=== PATIENT | female | born 1945 | race Caucasian/White ===

== ENCOUNTER → 2018-02-14 | Outpatient (CLI) | payer MEDICARE ==
[~2018-02-14] MED LIST: ALLO300T2 PO; ASPI-183 PO; CALC1TAB87 PO; CENTCHW3 PO; CYCL10TA PO; ESTR42.5V VAGINAL; INDA2.5T PO; LISI-515 PO; LOVA20TA PO; POTA595T PO; VITA1000 PO
[2018-02-14 12:44] LABS: AUTOMATED NEUTROPHIL # 4.5 TH/MM3 (1.8-7.7); BASOPHIL # 0.1 TH/MM3 (0-0.2); BASOPHIL % 1.1 % (0.0-2.0); EOSINOPHIL # 0.3 TH/MM3 (0-0.4); EOSINOPHIL % 3.2 % (0.0-4.0); HEMATOCRIT 38.4 % (35.0-46.0); HEMOGLOBIN 12.8 GM/DL (11.6-15.3); LYMPHOCYTE # 2.5 TH/MM3 (1.0-4.8); MEAN CELL VOLUME 89.1 FL (80.0-100.0); MEAN CORPUSCULAR HEMOGLOBIN 29.6 PG (27.0-34.0); MEAN CORPUSCULAR HGB CONC 33.2 % (32.0-36.0); MEAN PLATELET VOLUME 10.4 FL (7.0-11.0); MONO % 6.7 % (0.0-8.0); MONOCYTE # 0.5 TH/MM3 (0-0.9); PLATELET COUNT 240 TH/MM3 (150-450); RED BLOOD COUNT 4.31 MIL/MM3 (4.00-5.30); RED CELL DISTRIBUTION WIDTH 15.1 % (11.6-17.2); WHITE BLOOD COUNT 7.9 TH/MM3 (4.0-11.0)
[2018-02-14 12:44] LABS: BILIRUBIN, URINE NEG (NEG); BLOOD, URINE NEG (NEG); GLUCOSE,URINE NEG (NEG); HYALINE CAST, URINE 3 /lpf (RARE); KETONE, URINE NEG (NEG); MUCUS URINE FEW /lpf (OCC); NITRITE,URINE NEG (NEG); PH, URINE 5.5 (5.0-8.5); SQUAMOUS EPITHELIAL CELL URINE 1 /hpf (0-5); TRANSITIONAL EPI CELLS, URINE <1 /hpf; URINE COLOR YELLOW (YELLW/STRAW); URINE LEUKOCYTE ESTERASE TRACE (NEG)
[2018-02-14 13:05] LABS: ALBUMIN 4.2 GM/DL (3.4-5.0); AST (GOT) 22 U/L (15-37); BICARBONATE 26.6 MEQ/L (21.0-32.0); BLOOD UREA NITROGEN 33 MG/DL (7-18); CALCIUM 9.7 MG/DL (8.5-10.1); CHLORIDE 108 MEQ/L (98-107); CREATININE 1.26 MG/DL (0.50-1.00); GLOMERULAR FILTRATION RATE 42 ML/MIN (>89); GLUCOSE,FASTING 107 MG/DL (74-99); SODIUM (NA) 142 MEQ/L (136-145)
[2018-02-14 13:09] LABS: ALKALINE PHOSPHATASE 106 U/L (45-117); ALT (GPT) 31 U/L (10-53); TOTAL BILIRUBIN ADULT 0.4 MG/DL (0.2-1.0)
--- NOTE | 2018-02-15 13:25 | EKG ---
Date Performed: 02/14/2018 Time Performed: 11:29:35 PTAGE: 73 years EKG: Sinus rhythm BORDERLINE LEFT AXIS DEVIATION LOW QRS VOLTAGE IN PRECORDIAL LEADS PATTERN CONSISTENT WITH PULMONARY DISEASE MODERATE VOLTAGE CRITERIA FOR LVH, CONSIDER NORMAL VARIANT ABNORMAL ECG NO PREVIOUS TRACING DOCTOR: Javier Hewitt Interpretating Date/Time 02/15/2018 13:24:58
== END ==
LOC: CPRE 11:06
PROVIDERS: ATTEND Obstetrics & Gynecology Gynecology
DX: Z01.810 Encounter for preprocedural cardiovascular examination (principal); Z01.812 Encounter for preprocedural laboratory examination; N39.3 Stress incontinence (female) (male); R94.31 Abnormal electrocardiogram [ECG] [EKG]
CPT/HCPCS: 36415; 80053; 81001; 85025; 93005

== ENCOUNTER → 2018-03-22 | Day surgery (SDC) | payer MEDICARE ==
[~2018-03-22] MED LIST changes: -ALLO300T2 PO; -ASPI-183 PO; -CALC1TAB87 PO; -CENTCHW3 PO; -CYCL10TA PO; +DEXAMETHASONE SOD PHOS 4 MG/ML VIAL IV; +DO NOT ADM ANY ANTICOAGULANT DRUGS; -ESTR42.5V VAGINAL; -INDA2.5T PO; +KETOROLAC TROMETHAMINE 30 MG/ML (IVP) VIAL IV PUSH; +KETOROLAC TROMETHAMINE 60 MG/2 ML (IM) VIAL IM; +LACTATED RINGER'S 1000 ML INJ 1,000 ML IV; +LIDOCAINE HCL 1% PF 5 ML SYRINGE OTHER; -LISI-515 PO; -LOVA20TA PO; +METOPROLOL TARTRATE 25 MG TAB PO; +ONDANSETRON HCL 4 MG/2 ML VIAL IV; +ONDANSETRON HCL 4 MG/2 ML VIAL IV PUSH; -POTA595T PO; +PROPOFOL 200 MG/20 ML AMP IV; +SODIUM CHLORID 0.9% 500 ML IV; -VITA1000 PO; +ePHEDrine/NS 25 MG/5 ML SYRINGE IV; +fentaNYL CITRATE 250 MCG/5 ML AMP; +traMADol HCL 50 MG TAB PO
[2018-03-22] MEDS: CHLORHEXIDINE GLUCONATE 2 % 1 PACK (2 CLOTHS) TOPICAL (06:30)
[2018-03-22] MEDS: LACTATED RINGER'S 1000 ML IV (07:00)
[2018-03-22] MEDS: FLUORESCEIN SOD 10% SOLN 500 MG/5 ML AMP (07:07)
[2018-03-22] MEDS: POVIDONE IODINE 5% (ANTISEPSIS KIT) 4 APPLICATIONS EACH NARE (07:09)
[2018-03-22] MEDS: ceFAZolin 2 GM/DEX PREMIX 50 ML IV (07:28)
[2018-03-22] MEDS: LIDOCAINE 1%/EPINEPHrine 1:100,000 SOLN 50 ML VIAL (08:19)
[2018-03-22] MEDS: *MEPERIDINE 25 MG INJ VIAL PERIprocedural Use ONLY (08:57)
== END | disposition home or self-care (01) ==
LOC: HSDC 05:54
DX: N39.3 Stress incontinence (female) (male) (principal); N81.11 Cystocele, midline; E78.00 Pure hypercholesterolemia, unspecified; I10 Essential (primary) hypertension; Z79.82 Long term (current) use of aspirin
CPT/HCPCS: 57240